=== PATIENT | male | born 1960 | race Caucasian/White ===

== ENCOUNTER → 2018-08-09 | Outpatient (REF) | payer BC, OTHER ==
[2018-08-09 19:30] LABS: FERRITIN 105 NG/ML (26-388); IRON (FE) 159 UG/DL (65-175); TOTAL IRON BINDING CAPACITY 328 UG/DL (250-450)
[2018-08-09 20:57] LABS: PERCENT SATURATION 48.5 % (19.7-50.0)
== END ==
LOC: M LAB REF 18:21
DX: E83.110 Hereditary hemochromatosis (principal)
CPT/HCPCS: 83550

== ENCOUNTER → 2021-10-11 | Outpatient (CLI) | payer BC ==
[~2021-10-11] MED LIST: ASPI81TA26 PO; COVI30VI IM; GASTROGRAFIN SOLUTION 30ML (Q9963) ONE; ISOVUE-370 76% 100ML VIAL ONE; LISI20TA20 PO; MENSTAB5 PO; METO1TAB32 PO; METO25TA4 PO; MULTTAB24 PO; [UNRECOGNIZED DRUG - CODE] PO
--- NOTE | 2021-10-11 15:20 | REP ---
INDICATION: HEMACHROMATOSIS. COMPARISON: 02/14/2018 TECHNIQUE: Axial contrast-enhanced images of the abdomen using oral and 100 cc Isovue 370 intravenous contrast material with coronal and sagittal reformations. Delayed images of the abdomen along with coronal and sagittal reformations obtained. This CT examination was performed using the following dose reduction techniques: Automated exposure control, adjustment of mA and/or kv according to the patient's size, and use of iterative reconstruction technique. FINDINGS: 4 mm noncalcified nodule along the subpleural right middle lobe (image 5) appears relatively stable compared to 2018. Liver demonstrates fatty infiltration without focal hepatic lesion. Spleen, pancreas, gallbladder, bilateral adrenal glands and kidneys are essentially normal/stable. Small subcentimeter bilateral renal hypodensities likely represent benign cysts. Visualized portions of the enteric system are without obstruction or acute inflammatory process. Normal terminal ileum and appendix are identified in the right lower quadrant. Few scattered sigmoid diverticula noted. Atherosclerotic changes to the aorta and vasculature noted without aneurysm or dissection. No ascites. No free air. No adenopathy. Visualized musculoskeletal structures are intact and without acute osseous abnormality. IMPRESSION: 1. Hepatosteatosis without focal hepatic or splenic lesions identified. 2. Stable 4 mm subpleural nodule along the lateral aspect of the right middle lobe. <Electronically signed by Robert Nascimento > 10/11/21 1354
== END ==
LOC: M PLAIMG 12:53
PROVIDERS: ATTEND Internal Medicine Hematology & Oncology
DX: E83.119 Hemochromatosis, unspecified (principal); R91.1 Solitary pulmonary nodule; K76.0 Fatty (change of) liver, not elsewhere classified; K57.30 Diverticulosis of large intestine without perforation or abscess without bleeding; I70.0 Atherosclerosis of aorta; I25.10 Atherosclerotic heart disease of native coronary artery without angina pectoris
CPT/HCPCS: 74160; Q9963; Q9967